=== PATIENT | female | born 1985 ===

== ENCOUNTER 2017-02-14 12:11 | Inpatient (IN) ==
[2017-02-14] MEDS ORDERED: FAMOTIDINE 20 MG/2 ML VIAL IV ONE (12:20)
[2017-02-14] MEDS ORDERED: CITRIC ACID/SODIUM CITRATE 30 ML UDCUP PO ONE (12:20)
[2017-02-14] MEDS ORDERED: ceFAZolin 2,000 MG in PREMIX 1 EACH IV ONE (12:20)
[2017-02-14] MEDS ORDERED: OXYTOCIN/LR 20 UNIT/1,000 ML BAG IV ONE ×2 (12:22→14:43)
[2017-02-14] MEDS ORDERED: OXYTOCIN 10 UNIT/ML VIAL IM ONE (12:22)
[2017-02-14] MEDS ORDERED: OXYTOCIN/LR 30 UNIT/1,000 ML BAG IV ONE (12:22)
[2017-02-14] MEDS ORDERED: LACTATED RINGERS 1,000 ML IV SCH (12:30)
[2017-02-14 13:27] LABS: Basophils % 0.2 % (0.0-0.8); Eosinophils % 0.4 % (0.00-10.9); Hematocrit 36.3 VOL% (35.7-47.0); Hemoglobin 12.1 GM/DL (12.0-16.0); Immature Granulocytes % 0.4 %; Immature Granulocytes Absolute 0.04 #; Lymphocytes # 2.1 10*3/uL (1.4-4.0); Lymphocytes % 22.4 % (21.3-54.2); Mean Corpuscular HGB Conc 33.3 GM/DL (32-36); Mean Corpuscular Hemoglobin 29 PG (27-34); Mean Corpuscular Volume 87.9 FL (87-102); Mean Platelet Volume 11.2 FL (9.6-12.0); Monocytes # 0.4 10*3/uL (0.11-0.8); Monocytes % 4.6 % (1.7-12.7); Neutrophils # 6.7 10*3/uL (1.4-7.4); Platelet Count 227 T/CUMM (130-400); Red Blood Count 4.13 MC/CUMM (3.8-5.5); Red Cell Distribution Width 13.4 % (9.3-17.3); White Blood Count 9.3 T/CUMM (4-12)
[2017-02-14 13:41] LABS: INR 0.9; PT Patient Result 9.8 SECS; Partial Thromboplastin Time 27.3 SECS (0-40)
[2017-02-14 13:49] LABS: Albumin 2.2 G/DL (3.4-5.0); Bilirubin,Total 0.4 MG/DL (0.2-1.0); Calcium 8.2 MG/DL (8.5-10.1); Osmolality,Calculated 279.5 MOS/KG (273-304); Total Protein 6.1 G/DL (6.4-8.3)
[2017-02-14 14:33] LABS: Apearance,Urine CLEAR (Clear); Bacteria,Urine Occasional /HPF (Few); Bilirubin,Urine Negative (Negative); Blood, Urine Small mg/dL (Negative); Glucose,Urine (UA) Negative (Negative); Ketones,Urine 5 mg/dL (Negative); Mucus,Urine Few /LPF (Occasional); Nitrite,Urine Negative (Negative); Protein,Urine 30 MG/DL; RBC,Urine 2 /HPF (0-4); Squamous Epithelial Cell,Urine Occasional /HPF (0-10); Urine Color Yellow (Yellow); Urine Specific Gravity 1.016 (1.001-1.035); Urine Urobilinogen < 2.0 EU/DL (0.2-1.0); WBC,Urine 1 /HPF (0-6)
--- NOTE | 2017-02-14 14:41 | OB/GYN History & Physical ---
History of Present Illness Chief complaint: Severe preeclampsia at 37 weeks History of present illness: Ms. Ashley is a 31 year old female 6 para 4 previous 4 who presents with blood pressures 180/ 100 on multiple occasions. Patient is without any symptoms of headaches blurred vision vague right upper quadrant pain. heart tones are category 1. Abdominal incisions intact with no tenderness noted. In light of these findings of increasing blood pressure nonresponsive to p.o. meds this patient prepare for her fifth section risks benefits thoroughly discussed she is in full agreement also tubal ligation was also discussed with this patient at earlier visits. 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 General appearance: mild distress - Antepartum / Post Antepartum Exam Cervix - Dilatation: Long thick and closed - Head Head exam: Present: normal inspection - Eye Eye exam: Present: EOMI Pupils: Present: MAGNO - ENT ENT exam: Present: normal exam - Neck Neck exam: Present: normal inspection - Respiratory Respiratory exam: Present: clear to auscultation bilaterally - Breast Breasts: as per HPI Menstruation: as per HPI - Cardiovascular Cardiovascular exam: Present: regular rate and rhythm - GI/Abdominal GI/Abdominal exam: Present: normal bowel sounds - Extremities Exam Extremities exam: Present: normal inspection - Back Exam Back exam: Present: normal inspection - Neurological Exam Neurological exam: Present: alert - Psychiatric Psychiatric exam: Present: normal affect - Skin Skin exam: Present: normal color Assessment and Plan (1) Severe preeclampsia Status: Acute Assessment and plan: 37 weeks with severe preeclampsia will plan on a repeat section 5 risks benefits thoroughly discussed and she is in full agreement Current Visit: Yes Results - Labs CBC & BMP: 02/14/17 13:18 02/14/17 13:18
[2017-02-14] MEDS ORDERED: fentaNYL 100 MCG/2 ML VIAL ONE (14:42)
[2017-02-14] MEDS ORDERED: RHO(D) IMMUNE GLOBULIN 300 MCG SYRINGE IM ONE (14:43)
[2017-02-14] MEDS ORDERED: ACETAMINOPHEN 325 MG TABLET PO PRN (14:43)
[2017-02-14] MEDS ORDERED: MIDAZOLAM 2 MG/2 ML VIAL ONE (14:43)
[2017-02-14] MEDS ORDERED: ONDANSETRON 4 MG/2 ML VIAL IV PRN (14:43)
[2017-02-14] MEDS ORDERED: MORPHINE 10 MG/10 ML VIAL ONE (14:43)
--- NOTE | 2017-02-14 14:43 | Operative Note ---
Date of procedure: 02/14/17 Procedure: Preoperative diagnosis: Severe preeclampsia, 37 weeks gestation Postoperative diagnosis: Same, elective sterilization Anesthesia:[] Failed epidural anesthesia, general anesthesia Estimated blood loss: [] 400 cc Surgeon: Dr. Rodriges Findings: [] 9 lbs. 10 oz. female infant, Apgars were 7 and 9, cord blood and cord gas was obtained, Complications: None Procedure: Low transverse section, lysis of adhesions, bilateral tubal ligation The patient was taken to the operating suite heart tones were obtained prior to and after regional anesthesia was obtained. She was placed in supine position her abdomen was prepped and draped in usual manner for major abdominal surgery. Through an abdominal incision the skin, subcutaneous, fascial layer and peritoneal the abdomen was entered. The bladder flap was created and a low transverse incision was made.. Fluid was clear and normal amount X, Apgars, the placenta was delivered and sent to lab for further evaluation. Injected with intrauterine Pitocin. The first layer of the uterus was closed with #1 Vicryl in a continuous locking manner. Close to imbricate the first layer with #1 Vicryl. The peritoneum was approximated with #2-0 Vicryl.[Fallopian tubes were grasped with a Sabina clamp omental adhesions were from the fallopian tubes. The mesosalpinx was entered. Proximal distal tube was ligated. Segment in between was excised. Cut edges were then cauterized. All the last sponges and instruments were accounted for -2.) #2-0 Vicryl. Fascia was approximated with #0-0 Maxon.. The skin was approximated with andreina. She tolerated procedure well and was taken to recovery room in stable condition. Surgeon / Physician: Cee Rodriges Results - Labs CBC & BMP: 02/14/17 13:18 02/14/17 13:18 Discharge Plan - Discharge Medications No Action No Known Home Medications [No Known Home Medications] - Follow Up or Referral - Forms/Instructions
[2017-02-14 14:47] LABS: Cord Arterial Blood HCO3 26.7 MMOL/L
[2017-02-14 14:50] LABS: Cord Venous Blood HCO3 23.2 MMOL/L; Cord Venous Blood PCO2 54.1 MMHG; Cord Venous Blood PO2 22.9 MMHG
[2017-02-14] MEDS ORDERED: GLYCOPYRROLATE 0.4 MG/2 ML VIAL ONE (15:01)
[2017-02-14] MEDS ORDERED: PROPOFOL 200 MG/20 ML VIAL IV ONE (15:01)
[2017-02-14] MEDS ORDERED: ONDANSETRON 4 MG/2 ML VIAL ONE (15:01)
[2017-02-14] MEDS ORDERED: NEOSTIGMINE 10 MG/10 ML VIAL ONE (15:01)
[2017-02-14] MEDS ORDERED: ACETAMINOPHEN 1,000 MG/100 ML VIAL IV ONE (15:01)
[2017-02-14] MEDS ORDERED: ROCURONIUM 100 MG/10 ML VIAL IV ONE (15:02)
[2017-02-14] MEDS ORDERED: LACTATED RINGERS 2,000 ML IV ONE (15:02)
[2017-02-14] MEDS ORDERED: SUCCINYLCHOLINE 200 MG/10 ML VIAL ONE (15:02)
[2017-02-14] MEDS ORDERED: HYDROmorphone 2 MG/1 ML VIAL IV ONE (16:14)
[2017-02-14] MEDS: LACTATED RINGERS 1,000 ML IV SCH ×2 (19:49→23:25)
[2017-02-14 22:21] LABS: Basophils % 0.2 % (0.0-0.8); Eosinophils % 0.2 % (0.00-10.9); Hematocrit 31.5 VOL% (35.7-47.0); Hemoglobin 10.6 GM/DL (12.0-16.0); Immature Granulocytes % 0.5 %; Immature Granulocytes Absolute 0.06 #; Lymphocytes # 2.4 10*3/uL (1.4-4.0); Lymphocytes % 19.1 % (21.3-54.2); Mean Corpuscular HGB Conc 33.7 GM/DL (32-36); Mean Corpuscular Hemoglobin 29 PG (27-34); Mean Corpuscular Volume 86.1 FL (87-102); Mean Platelet Volume 11.1 FL (9.6-12.0); Monocytes # 0.6 10*3/uL (0.11-0.8); Monocytes % 4.8 % (1.7-12.7); Neutrophils # 9.4 10*3/uL (1.4-7.4); Neutrophils % 75.2 % (38.7-73.9); Platelet Count 186 T/CUMM (130-400); Red Blood Count 3.66 MC/CUMM (3.8-5.5); Red Cell Distribution Width 13.3 % (9.3-17.3); White Blood Count 12.5 T/CUMM (4-12)
[2017-02-14] MEDS ORDERED: HYDROmorphone 2 MG/1 ML VIAL IV PRN (23:12)
[2017-02-15 07:13] LABS: Basophils % 0.2 % (0.0-0.8); Eosinophils % 0.2 % (0.00-10.9); Hematocrit 33.3 VOL% (35.7-47.0); Hemoglobin 11.3 GM/DL (12.0-16.0); Immature Granulocytes % 0.5 %; Immature Granulocytes Absolute 0.06 #; Lymphocytes # 1.8 10*3/uL (1.4-4.0); Mean Corpuscular HGB Conc 33.9 GM/DL (32-36); Mean Corpuscular Hemoglobin 30 PG (27-34); Mean Corpuscular Volume 86.9 FL (87-102); Monocytes # 0.6 10*3/uL (0.11-0.8); Monocytes % 5.2 % (1.7-12.7); Neutrophils # 8.9 10*3/uL (1.4-7.4); Neutrophils % 77.9 % (38.7-73.9); Platelet Count 190 T/CUMM (130-400); Red Blood Count 3.83 MC/CUMM (3.8-5.5); Red Cell Distribution Width 13.6 % (9.3-17.3); White Blood Count 11.5 T/CUMM (4-12)
--- NOTE | 2017-02-15 09:30 | OB/GYN Progress Note ---
Assessment and Plan (1) Vaginal delivery Status: Acute Assessment and plan: Initiate routine orders. 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 The patient is bonding well with her . Exam SLING OPERATOR - Constitutional Vitals: Vital Signs Temp Pulse Pulse Resp BP BP Pulse Ox 02/15/17 07:19 98.4 F 73 20 118/63 97 02/15/17 04:00 97.3 F L 75 20 159/78 98 02/14/17 23:20 98.1 F 73 18 147/74 99 02/14/17 19:15 98.2 F 71 17 131/60 98 02/14/17 18:27 70 20 130/81 97 02/14/17 17:35 72 20 146/80 97 02/14/17 16:59 66 20 161/76 97 02/14/17 16:35 97.1 F L 64 20 169/80 97 General appearance: no acute distress - Antepartum / Post Post Exam Breast: bilateral: normal Abdomen obstetrics: Present: bowel sounds normal Vagina: Present: normal moisture, discharge (Light lochia rubra) Uterus exam: Present: enlarged (Fundus firm and midline) Anus/Rectum: Present: normal perianal skin - Respiratory Respiratory exam: Present: clear to auscultation bilaterally - Cardiovascular Cardiovascular exam: Present: regular rate and rhythm - GI/Abdominal GI/Abdominal exam: Present: normal bowel sounds, soft - Extremities Exam Extremities exam: Present: normal inspection - Back Exam Back exam: Present: normal inspection - Neurological Exam Neurological exam: Present: alert, oriented X3 - Psychiatric Psychiatric exam: Present: normal affect, normal mood - Skin Skin exam: Present: normal color, warm Results - Labs CBC & BMP: 02/15/17 07:08 02/14/17 13:18
--- NOTE | 2017-02-15 09:36 | OB/GYN Progress Note ---
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 Exam PARALEGAL SPECIALIST - Constitutional Vitals: Vital Signs Temp Pulse Pulse Resp BP BP Pulse Ox 02/15/17 07:19 98.4 F 73 20 118/63 97 02/15/17 04:00 97.3 F L 75 20 159/78 98 02/14/17 23:20 98.1 F 73 18 147/74 99 02/14/17 19:15 98.2 F 71 17 131/60 98 02/14/17 18:27 70 20 130/81 97 02/14/17 17:35 72 20 146/80 97 02/14/17 16:59 66 20 161/76 97 02/14/17 16:35 97.1 F L 64 20 169/80 97 General appearance: no acute distress - Antepartum / Post Post Exam Breast: bilateral: normal Abdomen obstetrics: Present: bowel sounds normal Vagina: Present: normal moisture, discharge (Light lochia rubra) Uterus exam: Present: enlarged (Fundus firm and midline) - Gyencological / Post Surgical Post Surgical Exam Lungs: bilateral: normal Chest: Normal S1, Normal S2 Extremities PARALEGAL SPECIALIST: Present: normal Abdomen obstetrics progress note: Present: normal appearance, soft Incision OB: Present: normal, intact (Incision well approximated with andreina without signs of infection) - Head Head exam: Present: normal inspection - Respiratory Respiratory exam: Present: clear to auscultation bilaterally - Cardiovascular Cardiovascular exam: Present: regular rate and rhythm - GI/Abdominal GI/Abdominal exam: Present: normal bowel sounds, soft - Extremities Exam Extremities exam: Present: normal inspection - Neurological Exam Neurological exam: Present: alert, oriented X3 - Psychiatric Psychiatric exam: Present: normal affect, normal mood - Skin Skin exam: Present: normal color, warm Results - Labs CBC & BMP: 02/15/17 07:08 02/14/17 13:18
[2017-02-15] MEDS: SIMETHICONE CHEW 80 MG TABLET PO PRN ×2 (09:46→20:19)
[2017-02-15] MEDS: MAGNESIUM HYDROXIDE SUSP 30 ML UDCUP PO PRN ×2 (09:46→20:19)
[2017-02-15] MEDS: MULTIVITAMIN (PRENATAL) TABLET PO SCH (09:46)
[2017-02-15] MEDS: DOCUSATE SODIUM 100 MG CAPSULE PO SCH ×2 (09:48→20:19)
[2017-02-15] MEDS: IBUPROFEN 800 MG TABLET PO PRN ×2 (11:43→23:50)
--- NOTE | 2017-02-16 08:57 | OB/GYN Progress Note ---
Assessment and Plan (1) Status post repeat low transverse section Status: Acute Assessment and plan: Initiate routine postop orders. 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 Exam MANAGER E LEARNING - Constitutional Vitals: Vital Signs Temp Pulse Resp BP Pulse Ox 02/16/17 07:16 97.6 F 86 20 165/69 97 02/16/17 05:57 20 02/16/17 05:20 16 02/16/17 04:00 97.7 F 91 H 16 152/84 97 02/16/17 03:16 16 02/15/17 23:50 98.6 F 87 20 137/81 97 02/15/17 19:20 98 F 89 20 136/83 99 02/15/17 16:00 98.4 F 69 20 130/67 98 02/15/17 14:00 19 02/15/17 11:21 98.3 F 73 20 130/71 97 General appearance: mild distress - Antepartum / Post Post Exam Breast: bilateral: normal Abdomen obstetrics: Present: bowel sounds normal Vagina: Present: normal moisture, discharge Uterus exam: Present: enlarged (Fundus firm midline) - Gyencological / Post Surgical Post Surgical Exam Lungs: bilateral: normal Chest: Normal S1, Normal S2 Extremities MANAGER E LEARNING: Present: normal Abdomen obstetrics progress note: Present: normal appearance, soft Incision OB: Present: normal, intact (Incision well approximated without signs and symptoms of infection) - Respiratory Respiratory exam: Present: clear to auscultation bilaterally - Cardiovascular Cardiovascular exam: Present: regular rate and rhythm - GI/Abdominal GI/Abdominal exam: Present: normal bowel sounds, soft - Extremities Exam Extremities exam: Present: normal inspection - Neurological Exam Neurological exam: Present: alert, oriented X3 - Psychiatric Psychiatric exam: Present: normal affect, normal mood - Skin Skin exam: Present: normal color, warm Results - Labs CBC & BMP: 02/15/17 07:08 02/14/17 13:18
--- NOTE | 2017-02-16 09:47 | Anesthesia Post-Op ---
Anesthesia Post OP - Post Ansesthetic Evaluation Patient seen in post op: Yes Resp: within normal limits CV: within normal limits Mental: within normal limits Temp: within normal limits [id number]: within normal limits Nausea and Vomiting: within normal limits Pain: within normal limits
[2017-02-16] MEDS: DOCUSATE SODIUM 100 MG CAPSULE PO SCH ×3 (09:58→23:30)
[2017-02-16] MEDS: MULTIVITAMIN (PRENATAL) TABLET PO SCH (09:59)
--- NOTE | 2017-02-16 11:17 | Pathology Report from [facility] ---
[facility] ACCESSION # : [id number] PATIENT NAME : Rachael Walden ORDERING DR : MARIE HERNANDEZ MD CLINICAL HX: IUP @ 37 wks gestation, repeat C/S, tubal segment POST-OP DX: Same SPECIMEN INFO: #1 Placenta #2 RT tubal segment #3 LT tubal segment GROSS DESCRIPTION: The specimen is received fresh in three parts labeled RACHAEL WALDEN. Part #1 consists of a 626.0 cm placenta measuring 16.0 x 17.0 x 3.3 cm. The membranes are pink-jose and translucent. The umbilical cord measures 20.5 cm, contains three vessels and is pericentrally inserted. The surface is blue-lubin with few small scattered areas of sub chorionic fibrin noted. The maternal surface is hemorrhagic and intact. No abnormalities are grossly appreciated upon sectioning. Sections submitted: 1A membranes and cord and 1B and maternal surfaces.Part #2 labeled RIGHT consists of an unfrimbriated fallopian tube segment measuring 2.2 x 0.6 cm. A ocean import representative section submitted in cassette #2.Part #3 labeled LEFT consists of an unfrimbriated fallopian tube segment measuring 1.8 x 0.6 cm. A ocean import representative section submitted in cassette #3. DIAGNOSIS FOR RACHAEL WALDEN: #1 PLACENTA, MEMBRANES, UMBILICAL CORD: Focal placental infarction with dystrophic calcification, moderate intervillous blood. Tri-vessel umbilical cord, pericentrally inserted. Membranes with focal acute and chronic inflammation and attached blood.#2 Completely transected segment of fallopian tube, right.#3 Completely transected segment of fallopian tube, left. COLLECTED DATE: 02/15/2017 [facility] REPORT DATE: 02/16/2017 ELECTRONICALLY SIGNED BY: Dilcia Prieto M.D. 02/16/2017 - 10:19:54 MTDLenard
[2017-02-16] MEDS: IBUPROFEN 800 MG TABLET PO PRN (13:11)
[2017-02-17] MEDS: SIMETHICONE CHEW 80 MG TABLET PO PRN (09:09)
[2017-02-17] MEDS: MAGNESIUM HYDROXIDE SUSP 30 ML UDCUP PO PRN (09:09)
[2017-02-17] MEDS: MULTIVITAMIN (PRENATAL) TABLET PO SCH (09:09)
[2017-02-17] MEDS: DOCUSATE SODIUM 100 MG CAPSULE PO SCH ×3 (09:10→21:19)
--- NOTE | 2017-02-17 09:21 | OB/GYN Progress Note ---
Assessment and Plan (1) Status post repeat low transverse section Status: Acute Assessment and plan: Initiate routine postop orders. 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 Bonding well with . Exam ELEMENT SETTER - Constitutional Vitals: Vital Signs Temp Pulse Resp BP Pulse Ox 02/17/17 08:00 20 02/17/17 07:12 97.6 F 89 20 151/60 96 02/17/17 06:00 18 02/17/17 04:00 98.3 F 84 20 150/80 99 02/17/17 02:00 18 02/17/17 00:00 98.6 F 83 18 117/52 99 02/16/17 20:00 99.8 F H 92 H 20 115/55 99 02/16/17 16:00 97.7 F 81 20 149/77 97 02/16/17 11:17 98.4 F 79 19 116/78 97 02/16/17 11:00 18 General appearance: no acute distress - Gyencological / Post Surgical Post Surgical Exam Lungs: bilateral: normal Chest: Normal S1, Normal S2 Extremities ELEMENT SETTER: Present: normal Abdomen obstetrics progress note: Present: normal appearance Incision OB: Present: normal, intact - Respiratory Respiratory exam: Present: clear to auscultation bilaterally - Cardiovascular Cardiovascular exam: Present: regular rate and rhythm - GI/Abdominal GI/Abdominal exam: Present: normal bowel sounds, soft - Extremities Exam Extremities exam: Present: normal inspection - Neurological Exam Neurological exam: Present: alert, oriented X3 - Psychiatric Psychiatric exam: Present: normal affect, normal mood - Skin Skin exam: Present: normal color, warm Results - Labs CBC & BMP: 02/15/17 07:08 02/14/17 13:18
[2017-02-17] MEDS: IBUPROFEN 800 MG TABLET PO PRN (21:19)
[2017-02-18] MEDS: MULTIVITAMIN (PRENATAL) TABLET PO SCH (08:05)
[2017-02-18] MEDS: DOCUSATE SODIUM 100 MG CAPSULE PO SCH (08:05)
[2017-02-18] MEDS: IBUPROFEN 800 MG TABLET PO PRN (11:26)
[2017-02-18 11:27] VITALS: BP 156/77
--- NOTE | 2017-02-18 12:31 | Discharge Summary ---
Hospital Course - Hospital Course Hospital Course: Ms. Ashley presented to the hospital with elevated blood pressures and previous c/section x 4. In light of these findings, patient was admitted for repeat c/s per Dr. Rodriges. The surgery was performed and a viable infant was delivered. The patient has followed a routine postoperative course and she has done well. Her incision is well approximated without signs of infection. Her fundus is firm and midline. Her bleeding is minimal with no odor. She is bonding well with her infant. Her vital signs and lab values are stable. She has had a normal bowel movement. She will be discharged to home with prescriptions for pain and a follow up appointment in our office. Diagnosis - Discharge Diagnosis (1) Status post repeat low transverse section Status: Acute Specialty Discharge - Follow Up or Referrals Follow up with: Cee Rodriges MD [Physician] - 02/28/17 1:30 pm (clip removal) Discharge Plan - Discharge Data Disposition: Disch To Home/Self Care Condition at Discharge: Stable Discharge Diet: advance to your usual diet Activity: increase activity as tolerated, no lifting, no prolonged standing Hygiene: may shower Weight Bearing at Discharge: partial weight bearing Driving: not until seen by doctor Contact your physician if you experience:: fever over 101, pain uncontrolled by pain medications - Discharge Medications New NIFEdipine XL TAB [Procardia Xl] 30 mg PO DAILY #30 tablet HYDROcodone/ACETAMIN 5-325 [Brainard 5-325] 2 tablet PO Q6H PRN #30 tablet PRN Reason: Pain Severe (8-10) Ibuprofen Tab [Motrin Tab] 800 mg PO Q8H PRN #30 tablet PRN Reason: Pain Severe (8-10) No Action No Known Home Medications [No Known Home Medications] - Follow Up or Referral Follow Up: Cee Rodriges MD [Physician] - 02/28/17 1:30 pm (clip removal) - Forms/Instructions Instructions: Section (DC), Depression (GEN), Perineal Care (DC), Bleeding (DC) Exam - Constitutional Vitals: Period Temp Pulse Resp BP Sys/Jones Pulse Ox Last 24 Hr 97.1 F-99.2 F 83-99 18-20 123-156/59-78 97-99 General appearance: no acute distress - Head Head exam: Present: normal inspection - Respiratory Respiratory exam: Present: clear to auscultation bilaterally - Cardiovascular Cardiovascular exam: Present: regular rate and rhythm - GI/Abdominal GI/Abdominal exam: Present: normal bowel sounds, soft - Extremities Exam Extremities exam: Present: normal inspection - Back Exam Back exam: Present: normal inspection - Neurological Exam Neurological exam: Present: alert, oriented X3 - Psychiatric Psychiatric exam: Present: normal affect, normal mood - Skin Skin exam: Present: normal color, warm DS: Provider Date of admission: 02/14/17 12:20 Primary care physician: Federico Belcher MD Attending physician on admission: Cee Rodriges MD Consults: 02/14/17 12:20 Consult to Anesthesiology [CONS] Routine Consulting Provider: Reason for Anesthesiology: Pre-op Clearance 02/14/17 14:44 Consult to Track Layer [CONS] Routine Consult Track Layer: Breast Feeding Discharging clinician: Ade Strickland CNM Expected date of discharge: 02/18/17
[2017-02-18] MEDS ORDERED: DIPH/TET/ACEL PERT BOOSTER VACCINE 0.5 ML VIAL IM ONE (14:06)
== END 2017-02-18 14:50 | disposition home or self-care (01) | DRG 540 ==
LOC: N.LDOUT 12:11 → N.LD 12:14 → N.OB 16:29
PROVIDERS: ADMIT Obstetrics & Gynecology; ATTEND Obstetrics & Gynecology